=== PATIENT | female | born 1965 | race Hispanic/Latino ===

== ENCOUNTER 2017-03-05 08:42 | Emergency (ER) | payer BC ==
[2017-03-05 09:00] LABS: Basophils % (Auto) 0.6 % (0.0-1.8); Eosinophils % (Auto) 2.2 % (0.0-4.3); Hematocrit 47.3 % (30.3-42.9); Hemoglobin 15.9 gm/dl (10.1-14.3); Mean Corpuscular HGB Conc 34 % (30-34); Mean Corpuscular Hemoglobin 33 pg (28-32); Mean Corpuscular Volume 99 fl (79-97); Platelet Count 348 K/mm3 (140-440); Red Cell Distribution Width 14.2 % (13.2-15.2); White Blood Count 10.9 K/mm3 (4.5-11.0)
[2017-03-05 09:21] LABS: Alanine Aminotransferase 49 units/L (7-56); Albumin 4.1 g/dL (3.9-5); Albumin/Globulin Ratio 1.2 %; Alkaline Phosphatase 81 units/L (35-129); Anion Gap 29 mmol/L; Blood Urea Nitrogen 7 mg/dL (7-17); Carbon Dioxide 18 mmol/L (22-30); Glucose 80 mg/dL (65-100); Lipase 67 units/L (13-60); Sodium 140 mmol/L (137-145); Total Protein 7.4 g/dL (6.3-8.2)
[2017-03-05 09:27] LABS: Bacteria,Urine 1+ /HPF (Negative); Bilirubin,Urine NEG (Negative); Blood,Urine SM (Negative); Ketones,Urine TR mg/dL (Negative); Leukocyte Esterase,Urine NEG (Negative); Mucus,Urine FEW /HPF; Nitrite,Urine NEG (Negative); Urobilinogen,Urine < 2.0 mg/dL (<2.0)
[2017-03-05] MEDS ORDERED: NACL 0.9% 1000 ML 1,000 ML IV ONE (11:56)
[2017-03-05] MEDS ORDERED: DILAUDID IV ONE (11:56)
[2017-03-05] MEDS ORDERED: ZOFRAN IV ONE (11:56)
[2017-03-05] MEDS ORDERED: PROTONIX IV ONE (11:56)
--- NOTE | 2017-03-05 11:59 | Emergency Department Report ---
ED Abdominal Pain HPI - General Chief Complaint: Abdominal Pain Stated Complaint: ABD PAIN Time Seen by Provider: 03/05/17 11:47 Source: patient Mode of arrival: Ambulatory Limitations: No Limitations - History of Present Illness MD Complaint: abdominal pain -: Gradual Location: diffuse Radiation: back Migration to: no migration Severity: moderate Severity scale (0 -10): 8 Consistency: constant Improves With: nothing Worsens With: nothing Associated Symptoms: nausea. denies: vomiting, diarrhea, fever, chills, constipation, dysuria, hematemesis, melena, hematuria, anorexia - Related Data Previous Rx's Medication Instructions Recorded Last Taken Type HYDROcodone/APAP 5-325 [[place] 1 each PO BID #12 tablet 03/05/17 Unknown Rx 5/325] Ondansetron [Zofran Odt] 4 mg PO BID #20 tab.rapdis 03/05/17 Unknown Rx Allergies Allergy/AdvReac Type Severity Reaction Status Date / Time No Known Allergies Allergy Unverified 09/14/14 08:30 ED Review of Systems ROS: Stated complaint: ABD PAIN Other details as noted in HPI Comment: All other systems reviewed and negative ED Past Medical Hx - Past Medical History Previous Medical History?: Yes Hx Hypertension: Yes Hx Congestive Heart Failure: No Hx Diabetes: No Hx Kidney Stones: Yes Hx Asthma: No Hx COPD: No - Surgical History Past Surgical History?: Yes Hx Cholecystectomy: Yes (02/2014) Additional Surgical History: tonsillectomy, Right shoulder surgery - Social History Smoking Status: Current Every Day Smoker Substance Use Type: Alcohol, Non Opiate Pain - Medications Home Medications: Home Medications Medication Instructions Recorded Confirmed Last Taken Type HYDROcodone/APAP 5-325 [[place] 1 each PO BID #12 tablet 03/05/17 Unknown Rx 5/325] Ondansetron [Zofran Odt] 4 mg PO BID #20 tab.rapdis 03/05/17 Unknown Rx ED Physical Exam - General Limitations: No Limitations General appearance: alert, in no apparent distress - Head Head exam: Present: atraumatic, normocephalic - Eye Eye exam: Present: normal appearance, PERRL - ENT ENT exam: Present: normal exam, normal orophraynx, mucous membranes moist - Neck Neck exam: Present: normal inspection - Respiratory Respiratory exam: Present: normal lung sounds bilaterally. Absent: respiratory distress - Cardiovascular Cardiovascular Exam: Present: regular rate, normal rhythm. Absent: systolic murmur, diastolic murmur, rubs, gallop - GI/Abdominal GI/Abdominal exam: Present: soft, tenderness, normal bowel sounds. Absent: distended, guarding, rebound, rigid - Extremities Exam Extremities exam: Present: normal inspection - Back Exam Back exam: Present: normal inspection - Neurological Exam Neurological exam: Present: alert, oriented X3 - Psychiatric Psychiatric exam: Present: normal affect, normal mood - Skin Skin exam: Present: warm, dry, intact, normal color. Absent: rash ED Course Vital Signs 03/05/17 03/05/17 03/05/17 08:45 11:38 11:40 Temperature 98.2 F Pulse Rate 116 H Respiratory 22 Rate Blood Pressure 182/108 187/99 Blood Pressure [Left] O2 Sat by Pulse 98 97 98 Oximetry 03/05/17 11:47 Temperature 97.8 F Pulse Rate 107 H Respiratory 18 Rate Blood Pressure Blood Pressure 187/99 [Left] O2 Sat by Pulse 97 Oximetry ED Medical Decision Making - Lab Data Result diagrams: 03/05/17 08:51 03/05/17 08:51 Critical care attestation.: If time is entered above; I have spent that time in minutes in the direct care of this critically ill patient, excluding procedure time. ED Disposition Clinical Impression: Abdominal pain, Pancreatitis Disposition: DISCHARGED TO HOME OR SELFCARE Is pt being admited?: No Does the pt Need Aspirin: No Condition: Good Instructions: Abdominal Pain (ED) Prescriptions: HYDROcodone/APAP 5-325 [[place] 5/325] 1 each PO BID #12 tablet Ondansetron [Zofran Odt] 4 mg PO BID #20 tab.rapdis Referrals: PORSHA CROSS MD [Primary Care Provider] - 3-5 Days Time of Disposition: 15:01
--- NOTE | 2017-03-05 14:16 | Cat Scan Report ---
CT ABDOMEN AND PELVIS WITH CONTRAST INDICATION: Abdominal pain. COMPARISON: 09/14/2014. FINDINGS: Abdomen and pelvis CT performed following intravenous administration of 100 cc of Omnipaque 300. LUNG BASES: Mild nonspecific distal esophageal wall prominence/thickening, not excluded for gastroesophageal reflux and/or hiatal hernia, amongst others. ABDOMEN: Interval development of moderate to severe diffuse fatty hepatic infiltration. Right hepatic lobe measures 19.7 cm in midclavicular length, previously 19.3 cm. No biliary dilatation. Stable cholecystectomy clips. Spleen, pancreas, adrenals, nonaneurysmal abdominal aorta with atherosclerotic calcifications, IVC and kidneys otherwise stable. Approximately 7 mm left renal calculus inferiorly again noted as also slight bilateral perinephric stranding. No ascites or size significant adenopathy. Nonopacified GI tract evaluation limited, though grossly nonobstructive. Normal appendix. Decompressed colon. PELVIS: Urinary bladder, uterus, adnexa/ovaries and rectosigmoid appear unremarkable. Small pelvic phleboliths. No free fluid or significant adenopathy. Stable bones with lower thoracic-upper lumbar degenerative changes and mild lower lumbar facet arthropathy. CONCLUSION: 1. Interval development of diffuse fatty hepatic infiltration, as described. 2. Stable cholecystectomy and 7 mm nonobstructing left renal calculus, amongst others, as above. Thank you for the opportunity to participate in this patient's care.
[2017-03-05 15:25] VITALS: BP 188/95
== END 2017-03-05 15:25 | disposition home or self-care (01) ==
LOC: ED 08:42
DX: K85.90 Acute pancreatitis without necrosis or infection, unspecified (principal); I10 Essential (primary) hypertension; F17.200 Nicotine dependence, unspecified, uncomplicated
CPT/HCPCS: 36415; 74177; 80053; 81001; 83690; 85025; 96361; 96374; 96375; 99284; C9113; J1170; J2405; J7030; Q9967

== ENCOUNTER 2018-01-06 03:29 | Inpatient (IN) | payer BC ==
[2018-01-06 04:53] LABS: Basophils % (Auto) 0.3 % (0.0-1.8); Eosinophils # (Auto) 0.1 K/mm3 (0.0-0.4); Eosinophils % (Auto) 1.7 % (0.0-4.3); Hematocrit 38.6 % (30.3-42.9); Hemoglobin 13.9 gm/dl (10.1-14.3); Lymphocytes # (Auto) 1.4 K/mm3 (1.2-5.4); Lymphocytes % (Auto) 23.1 % (13.4-35.0); Mean Corpuscular HGB Conc 36 % (30-34); Mean Corpuscular Hemoglobin 34 pg (28-32); Mean Corpuscular Volume 95 fl (79-97); Monocytes # (Auto) 0.7 K/mm3 (0.0-0.8); Monocytes % (Auto) 11.2 % (0.0-7.3); Platelet Count 365 K/mm3 (140-440); Red Blood Count 4.05 M/mm3 (3.65-5.03); Red Cell Distribution Width 13.3 % (13.2-15.2)
[2018-01-06 05:17] LABS: Alanine Aminotransferase 54 units/L (7-56); Albumin 4.5 g/dL (3.9-5); BUN/Creatinine Ratio 13; Blood Urea Nitrogen 9 mg/dL (7-17); Calcium 8.9 mg/dL (8.4-10.2); Hemolysis Index 4; Lipase 73 units/L (13-60)
[2018-01-06 07:22] LABS: Bacteria,Urine 1+ /HPF (Negative); Bilirubin,Urine NEG (Negative); Blood,Urine MOD (Negative); Color,Urine Yellow (Yellow); Mucus,Urine FEW /HPF; Protein,Urine <15 mg/dL mg/dL (Negative)
[2018-01-06] MEDS ORDERED: NACL 0.9% 500 ML 500 ML IV ONE (07:35)
--- NOTE | 2018-01-06 07:57 | Emergency Department Report ---
HPI - General Chief Complaint: Abdominal Pain Time Seen by Provider: 01/06/18 07:34 - HPI HPI: 52-year-old female presents to the emergency department with complaint of generalized abdominal pain, worse in the upper quadrant, as well as nausea, vomiting. When asked how long this has been going on the patient responds with "forever." However she says that there has been exacerbation over the past 4 days. The patient says "I think I have pancreatitis." She went to see a roofer vinyl coating, Dr. Rodgers, but then got a second opinion through [facility]. The patient has a history of alcohol abuse and questionable dependence but she denies any history of on-call withdrawal symptoms or seizures. Her last drink was at noon yesterday. Primary care physician is Dr. Sosa Esquivel. She has not taken anything for her symptoms prior to presentation. She has a history of cholecystectomy. No recent travel or sick contacts at home. ED Past Medical Hx - Past Medical History Previous Medical History?: Yes Hx Hypertension: Yes Hx Congestive Heart Failure: No Hx Diabetes: No Hx Kidney Stones: Yes Hx Asthma: No Hx COPD: No - Surgical History Hx Cholecystectomy: Yes (02/2014) Additional Surgical History: tonsillectomy, Right shoulder surgery 2008 - Social History Smoking Status: Current Every Day Smoker Substance Use Type: Alcohol - Medications Home Medications: Home Medications Medication Instructions Recorded Confirmed Last Taken Type Dicyclomine [Bentyl] 20 mg PO QID 01/06/18 01/06/18 01/05/18 History Lactobacillus Combination No.8 1 each PO DAILY 01/06/18 01/06/18 01/05/18 History [Adult Probiotic] Olmesartan/Hydrochlorothiazide 1 each PO DAILY 01/06/18 01/06/18 01/05/18 History [Olmesartan-Hctz 40-25 mg Tab] Omeprazole 20 mg PO QHS 01/06/18 01/06/18 01/05/18 History Omeprazole 40 mg PO QAM 01/06/18 01/06/18 01/05/18 History ED Review of Systems ROS: Stated complaint: PANCREATITIS ATTACK Other details as noted in HPI Comment: All other systems reviewed and negative Constitutional: denies: chills, fever Eyes: denies: eye pain, eye discharge, vision change ENT: denies: ear pain, throat pain Respiratory: denies: cough, shortness of breath, wheezing Cardiovascular: denies: chest pain, palpitations Gastrointestinal: abdominal pain, nausea, vomiting. denies: diarrhea Genitourinary: denies: urgency, dysuria, discharge Musculoskeletal: denies: back pain, joint swelling, arthralgia Skin: denies: rash, lesions Neurological: denies: headache, weakness, paresthesias Physical Exam - Physical Exam Vital Signs: Vital Signs 01/06/18 04:06 Temperature 98.8 F Pulse Rate 98 H Respiratory 18 Rate Blood Pressure 112/72 O2 Sat by Pulse 99 Oximetry Physical Exam: GENERAL: The patient is well-developed well-nourished. HENT: Normocephalic. Atraumatic. Patient has moist mucous membranes. EYES: Extraocular motions are intact. Pupils equal reactive to light bilaterally. NECK: Supple. Trachea is midline. CHEST/LUNGS: Clear to auscultation. There is no respiratory distress noted. HEART/CARDIOVASCULAR: Regular. There is no tachycardia. There is no murmur. ABDOMEN: Abdomen is soft. Mild generalized tenderness to palpation. No guarding. Patient has normal bowel sounds. There is no abdominal distention. SKIN: There is no rash. There is no edema. There is no diaphoresis. NEURO: The patient is awake, alert, and oriented. The patient is cooperative. The patient has no focal neurologic deficits. The patient has normal speech. MUSCULOSKELETAL: There is no tenderness or deformity. There is no limitation range of motion. There is no evidence of acute injury. ED Course Vital Signs 01/06/18 04:06 Temperature 98.8 F Pulse Rate 98 H Respiratory 18 Rate Blood Pressure 112/72 O2 Sat by Pulse 99 Oximetry ED Medical Decision Making - Lab Data Result diagrams: 01/06/18 04:36 01/06/18 04:36 - Radiology Data Radiology results: report reviewed CT ABDOMEN PELVIS WITH CONTRAST: HISTORY: abdominal pain. COMPARISON: 03/05/17. TECHNIQUE: Helical CT in 1.25mm intervals following IV contrast. Sagittal and coronal reconstructions. FINDINGS: Lung bases: Normal. Liver: Moderate diffuse fatty infiltration throughout the liver is unchanged. No focal liver mass, surface nodularity or enlargement. Biliary system: Cholecystectomy. No biliary dilatation. Pancreas: Normal. Spleen: Normal. Kidneys/ureters/bladder: 7 mm calyceal stone in the inferior left kidney is unchanged. The kidneys, ureters and bladder are within normal limits otherwise. Adrenal glands: Normal. Aorta: Mild diffuse calcifications. No stenosis, dissection or aneurysm. Intestines: Within normal limits given no oral contrast was administered. Appendix: Normal. Pelvic viscera: Normal. Ascites: None. Adenopathy: None. Musculoskeletal: Moderate thoracolumbar spondylosis. No evidence for acute injury or suspicious bony lesion. IMPRESSION: No acute process is identified in the abdomen or pelvis. No significant change since 03/05/17. 7 mm nonobstructing left renal stone. Hepatic steatosis. Transcribed By: TTR Dictated By: ISAK WISE JR, MD Electronically Authenticated By: ISAK WISE JR, MD Signed Date/Time: 01/06/18 6955 - Medical Decision Making Patient's labs for her abdominal pain almost unremarkable. No leukocytosis. Slight elevation in the lipase level but just above the normal range. CT of the abdomen and pelvis does not show any acute process. Labs do show significant hyponatremia with a sodium of 117. While patient denies drinking every day, I believe there is some level of consistent alcohol use and this may be the cause of the hyponatremia. Nonetheless, the patient will need admission for slow correction of the hyponatremia. She has been accepted for admission by the hospitalist service. - Differential Diagnosis pancreatitis, gastritis, pseudohyponatremia, alcohol dependence Critical Care Time: No Critical care attestation.: If time is entered above; I have spent that time in minutes in the direct care of this critically ill patient, excluding procedure time. ED Disposition Clinical Impression: Hyponatremia syndrome, History of alcohol use disorder, Hypochloremia Abdominal pain Qualifiers: Abdominal location: generalized Qualified Code(s): R10.84 - Generalized abdominal pain Disposition: OP ADMIT IP TO THIS HOSP Is pt being admited?: Yes Condition: Stable Instructions: Abdominal Pain (ED) Time of Disposition: 11:05
[2018-01-06] MEDS ORDERED: ROCEPHIN/NS 1 GM/50 ML 1 GM/50 ML BAG IV NR (08:00)
[2018-01-06] MEDS ORDERED: NACL ONE ×2 (08:04→08:59)
[2018-01-06] MEDS ORDERED: cefTRIAXone 1 GM in NACL 0.9% 20 ML IV NR (08:15)
[2018-01-06] MEDS ORDERED: PERCOCET 5/325 PO ONE (09:28)
[2018-01-06] MEDS: cefTRIAXone 1 GM in NACL 0.9% 20 ML IV SCH ×2 (09:40→21:42)
--- NOTE | 2018-01-06 09:41 | Cat Scan Report ---
CT ABDOMEN PELVIS WITH CONTRAST: HISTORY: abdominal pain. COMPARISON: 03/05/17. TECHNIQUE: Helical CT in 1.25mm intervals following IV contrast. Sagittal and coronal reconstructions. FINDINGS: Lung bases: Normal. Liver: Moderate diffuse fatty infiltration throughout the liver is unchanged. No focal liver mass, surface nodularity or enlargement. Biliary system: Cholecystectomy. No biliary dilatation. Pancreas: Normal. Spleen: Normal. Kidneys/ureters/bladder: 7 mm calyceal stone in the inferior left kidney is unchanged. The kidneys, ureters and bladder are within normal limits otherwise. Adrenal glands: Normal. Aorta: Mild diffuse calcifications. No stenosis, dissection or aneurysm. Intestines: Within normal limits given no oral contrast was administered. Appendix: Normal. Pelvic viscera: Normal. Ascites: None. Adenopathy: None. Musculoskeletal: Moderate thoracolumbar spondylosis. No evidence for acute injury or suspicious bony lesion. IMPRESSION: No acute process is identified in the abdomen or pelvis. No significant change since 03/05/17. 7 mm nonobstructing left renal stone. Hepatic steatosis.
[2018-01-06] MEDS: 1: FOLVITE 1 MG, INFUVITE 10 ML, VITAMIN B-1 100 MG in NACL 0.9% 1000 ML 988.8 ML 2: NA IV SCH (09:50)
[2018-01-06] MEDS ORDERED: SODIUM CHLORIDE FLUSH SYRINGE 10 ML IV PRN (10:30)
[2018-01-06] MEDS ORDERED: PROVENTIL IH PRN (10:30)
[2018-01-06] MEDS ORDERED: TYLENOL PO PRN (10:30)
[2018-01-06] MEDS ORDERED: LIBRIUM PO PRN (10:30)
[2018-01-06] MEDS ORDERED: AMBIEN PO PRN (10:30)
[2018-01-06] MEDS ORDERED: MORPHINE IV PRN (10:30)
[2018-01-06] MEDS ORDERED: ZOFRAN IV PRN (10:30)
[2018-01-06] MEDS ORDERED: REGLAN IV PRN (10:30)
--- NOTE | 2018-01-06 10:40 | History and Physical Report ---
History of Present Illness Date of examination: 01/06/18 Chief complaint: Abdominal pain, N/V History of present illness: 52-year-old female presents to the emergency department with complaint of generalized abdominal pain, worse in the upper quadrant, as well as nausea, vomiting. She went to see a auto appraiser, Dr. Rodgers, but then got a second opinion through [facility]. The patient has a history of alcohol abuse and questionable dependence , Her last drink was at noon yesterday. Primary care physician is Dr. Sosa Esquivel. She has not taken anything for her symptoms prior to presentation. No recent travel or sick contacts at home. In the ER her na noted to be 117, CT abdomen pelvis showed no acute change. She is being admitted for further evaluation and management. Past History Past Medical History: hypertension Past Surgical history: She has a history of cholecystectomy. Social history: smoking (a pack of cigarettes per day), alcohol abuse (drinks vodka daily), full code. denies: IV drug use Family history: diabetes, hypertension Review of System: Constitutional: no fever, no chills, no weight loss Ears, eyes, nose, mouth and throat: no nasal congestion, no nasal discharge, no sinus pressure, no vision change, no red eye. Neck: No neck pain or rigidity. Cardiovascular: No chest pain, no orthopnea, no palpitations, no leg swelling Respiratory: No shortness of breath, no cough, no congestion, no wheezing Gastrointestinal: + abdominal pain, + nausea, + vomiting Genitourinary : no dysuria, no hematuria Musculoskeletal: no joint swelling or muscle ache Integumentary: no rash, no pruritis Neurological: no parathesias, no numbness, no tingling Endocrine: no cold or heat intolerance, no polyuria or polydipsia Hematologic/Lymphatic: no easy bruising, no easy bleeding, no gland swelling Allergic/Immunologic: no urticaria, no angioedema. Medications and Allergies Allergies Allergy/AdvReac Type Severity Reaction Status Date / Time No Known Allergies Allergy Unverified 09/14/14 08:30 Home Medications Medication Instructions Recorded Confirmed Last Taken Type Dicyclomine [Bentyl] 20 mg PO QID 01/06/18 01/06/18 01/05/18 History Lactobacillus Combination No.8 1 each PO DAILY 01/06/18 01/06/18 01/05/18 History [Adult Probiotic] Olmesartan/Hydrochlorothiazide 1 each PO DAILY 01/06/18 01/06/18 01/05/18 History [Olmesartan-Hctz 40-25 mg Tab] Omeprazole 20 mg PO QHS 01/06/18 01/06/18 01/05/18 History Omeprazole 40 mg PO QAM 01/06/18 01/06/18 01/05/18 History Active Meds: Active Medications Acetaminophen (Tylenol) 650 mg PO Q4H PRN PRN Reason: Pain MILD(1-3)/Fever >100.5/GAY Albuterol (Proventil) 2.5 mg IH Q4HRT PRN PRN Reason: Shortness Of Breath Chlordiazepoxide HCl (Librium) 50 mg PO Q1H PRN PRN Reason: CIWA-Ar 8-15 Enoxaparin Sodium (Lovenox) 40 mg SUB-Q QDAY [facility] Famotidine (Pepcid) 20 mg PO BID [facility] Folic Acid 1 mg/ Multivitamins /Minerals 10 ml/ Thiamine HCl 100 mg/ Sodium Chloride 1,000 mls @ 125 mls/hr IV .BY DURATION [facility] Last Admin: 01/06/18 09:50 Dose: 125 mls/hr Sodium Chloride (Nacl 0.9% 1000 Ml) 1,000 mls @ 125 mls/hr IV .BY DURATION [facility] Dextrose/Sodium Chloride (D5ns) 1,000 mls @ 100 mls/hr IV DIRECT [facility] Lorazepam (Ativan) 2 mg PO Q1H PRN PRN Reason: CIWA-Ar 8-15 Metoclopramide HCl (Reglan) 10 mg IV Q6H PRN PRN Reason: Nausea And Vomiting Morphine Sulfate (Morphine) 2 mg IV Q4H PRN PRN Reason: Pain, Moderate (4-6) Ondansetron HCl (Zofran) 4 mg IV Q8H PRN PRN Reason: Nausea And Vomiting Sodium Chloride (Sodium Chloride Flush Syringe 10 Ml) 10 ml IV BID [facility] Sodium Chloride (Sodium Chloride Flush Syringe 10 Ml) 10 ml IV PRN PRN PRN Reason: LINE FLUSH Zolpidem Tartrate (Ambien) 5 mg PO QHS PRN PRN Reason: Insomnia Exam - Physical Exam Narrative exam: GENERAL: well-developed and well-nourished WF lying on bed appeared to be in no discomfort. HEENT: Normocephalic. Atraumatic. No conjunctival congestion or icterus. Patient has moist mucous membranes. NECK: Supple. Trachea midline. CHEST/LUNGS: Clear to auscultated bilaterally, breathing nonlabored. No wheezes crackles or rhonchi. HEART/CARDIOVASCULAR: Regular in rate and rhythm. S1 and S2 positive. ABDOMEN: Abdomen is soft, mild epigastric tender. Patient has normal bowel sounds. SKIN: There is no rash. Warm and dry. NEURO: No focal motor deficit. Follows command. MUSCULOSKELETAL: No joint effusion or tenderness. EXTRIMITY: No edema, no cyanosis or clubbing. PSYCH: Cooperative. - Constitutional Vitals: Temp Pulse Resp BP Pulse Ox 98.8 F 98 H 18 112/72 99 01/06/18 04:06 01/06/18 04:06 01/06/18 04:06 01/06/18 04:06 01/06/18 04:06 Results - Labs CBC & Chem 7: 01/06/18 04:36 01/08/18 04:40 Labs: Abnormal lab results 01/06/18 01/06/18 01/06/18 Range/Units 04:36 04:36 06:44 MCH 34 H (28-32) pg MCHC 36 H (30-34) % Jones % (Auto) 11.2 H (0.0-7.3) % Sodium 117 L* (137-145) mmol/L Chloride 75.1 L (98-107) mmol/L Carbon Dioxide 19 L (22-30) mmol/L AST 55 H (5-40) units/L Lipase 73 H (13-60) units/L Urine WBC (Auto) 16.0 H (0.0-6.0) /HPF - Imaging and Cardiology CT scan - abdomen: report reviewed Assessment and Plan Severe hyponatremia, likely from volume depletion Intractable nausea and vomiting with abdominal pain Alcohol abuse Hypertension, benign UTI, acute cystitis DVT prophylaxis - - We will admit the patient to telemetry bed - We will obtain urine culture and place on Rocephin - Continue IV fluid hydration with D5 normal saline and monitor BP every 6 hour -Consult nephrology for severe hyponatremia - place on alcohol withdrawal protocol - Supportive care with as needed reglan and morphine for intractable nausea vomiting and abdominal pain - Provide GI and DVT prophylaxis
[2018-01-06] MEDS ORDERED: D5NS 1,000 ML IV SCH (11:00)
--- NOTE | 2018-01-06 11:19 | Consultation ---
History of Present Illness - Reason for Consult Consult date: 01/06/18 hyponatremia, metabolic acidosis, other (volume depletion) - History of Present Illness The patient is a 52-year-old female with medical history significant for Hypertension and chronic abdominal pain who presented to the ED with complaint of generalized abdominal pain. She has been vomiting since yesterday. Today morning she woke up with epigastric pain. The pain was sharp , constant, not radiating and 9/10. 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 She admits taking atleast 3 Etoh drinks daily. Denies any withdrawal symptoms. Patient denies any dysuria, hematuria, fever, dizziness, weakness, fever, chills or syncope. Sodium level was 117 on admission and had decreased to 114. She was taking HCTZ at home. Past History Past Medical History: hypertension, other (Gastritis) Medications and Allergies Allergies Allergy/AdvReac Type Severity Reaction Status Date / Time No Known Allergies Allergy Unverified 09/14/14 08:30 Home Medications Medication Instructions Recorded Confirmed Last Taken Type Dicyclomine [Bentyl] 20 mg PO QID 01/06/18 01/06/18 01/05/18 History Lactobacillus Combination No.8 1 each PO DAILY 01/06/18 01/06/18 01/05/18 History [Adult Probiotic] Olmesartan/Hydrochlorothiazide 1 each PO DAILY 01/06/18 01/06/18 01/05/18 History [Olmesartan-Hctz 40-25 mg Tab] Omeprazole 20 mg PO QHS 01/06/18 01/06/18 01/05/18 History Omeprazole 40 mg PO QAM 01/06/18 01/06/18 01/05/18 History Active Meds: Active Medications Acetaminophen (Tylenol) 650 mg PO Q4H PRN PRN Reason: Pain MILD(1-3)/Fever >100.5/GAY Albuterol (Proventil) 2.5 mg IH Q4HRT PRN PRN Reason: Shortness Of Breath Chlordiazepoxide HCl (Librium) 50 mg PO Q1H PRN PRN Reason: CIWA-Ar 8-15 Enoxaparin Sodium (Lovenox) 40 mg SUB-Q QDAY [facility] Famotidine (Pepcid) 20 mg PO BID [facility] Folic Acid 1 mg/ Multivitamins /Minerals 10 ml/ Thiamine HCl 100 mg/ Sodium Chloride 1,000 mls @ 125 mls/hr IV .BY DURATION [facility] Last Admin: 01/06/18 09:50 Dose: 125 mls/hr Sodium Chloride (Nacl 0.9% 1000 Ml) 1,000 mls @ 125 mls/hr IV .BY DURATION [facility] Dextrose/Sodium Chloride (D5ns) 1,000 mls @ 100 mls/hr IV DIRECT [facility] Ceftriaxone Sodium 1 gm/ (Sodium Chloride) 20 mls @ 2 mls/min IV Q12HR [facility] Lorazepam (Ativan) 2 mg PO Q1H PRN PRN Reason: CIWA-Ar 8-15 Metoclopramide HCl (Reglan) 10 mg IV Q6H PRN PRN Reason: Nausea And Vomiting Morphine Sulfate (Morphine) 2 mg IV Q4H PRN PRN Reason: Pain, Moderate (4-6) Ondansetron HCl (Zofran) 4 mg IV Q8H PRN PRN Reason: Nausea And Vomiting Sodium Chloride (Sodium Chloride Flush Syringe 10 Ml) 10 ml IV BID [facility] Sodium Chloride (Sodium Chloride Flush Syringe 10 Ml) 10 ml IV PRN PRN PRN Reason: LINE FLUSH Zolpidem Tartrate (Ambien) 5 mg PO QHS PRN PRN Reason: Insomnia Review of Systems Constitutional: no weight loss, no weight gain, no fever, no chills, no anorexia , no weakness Ears, nose, mouth and throat: no epistaxis Breasts: deferred Cardiovascular: high blood pressure, no chest pain, no orthopnea, no edema, no syncope, no lightheadedness, no shortness of breath, no leg edema Respiratory: no cough Gastrointestinal: abdominal pain, nausea, vomiting, no diarrhea, no hematemesis , no melena Genitourinary Female: no dysuria, no urgency Rectal: no bleeding Musculoskeletal: no prior amputations Integumentary: no rash, no redness, no jaundice Neurological: no paralysis, no convulsions, no change in speech, no change in mentation, no confusion Psychiatric: no confusion Endocrine: no weight change Exam - Vital Signs Vital signs: Vital Signs Temp Pulse Resp BP Pulse Ox 98.8 F 98 H 18 112/72 99 01/06/18 04:06 01/06/18 04:06 01/06/18 04:06 01/06/18 04:06 01/06/18 04:06 - General Appearance General appearance: well-developed, well-nourished, appears stated age, obese, other (no distress) EENT: ATNC, PERRL, mucous membranes dry, hearing intact, vision intact Neck: Present: neck supple, trachea midline Respiratory: Clear to Ascultation Heart: regular, S1S2, no murmurs Gastrointestinal: Present: normoactive bowel sounds, obese. Absent: tenderness , distended Integumentary: no rash, warm and dry Neurologic: no focal deficit, no asterixis, alert and oriented x3 Musculoskeletal: Present: other (no edema) Psychiatric: mood/affect appropriate, cooperative Results - Lab Results 01/06/18 04:36 01/06/18 16:19 Most recent lab results Calcium 8.9 mg/dL (8.4-10.2) 01/06/18 04:36 Assessment and Plan 1. Hyponatremia: In the setting of HCTZ and volume depletion. Continue IV fluids. IV fluids was changed to 1/2 NS for appropriate correction of Sodium level. Serial Sodium levels. 2. Metabolic acidosis: Monitor. 3. Volume depletion: Continue IV fluids. 4. Abdominal Pain.
[2018-01-06 11:21] LABS: BUN/Creatinine Ratio 16; Blood Urea Nitrogen 11 mg/dL (7-17); Calcium 8.8 mg/dL (8.4-10.2); Hemolysis Index 3
[2018-01-06] MEDS: ATIVAN PO PRN ×2 (14:39→21:39)
[2018-01-06] MEDS: HABITROL TD SCH (15:30)
[2018-01-06 16:55] LABS: BUN/Creatinine Ratio 15; Blood Urea Nitrogen 9 mg/dL (7-17); Calcium 9.4 mg/dL (8.4-10.2); Hemolysis Index 5
[2018-01-06] MEDS ORDERED: D5/0.45NS 1,000 ML IV SCH (19:00)
[2018-01-06] MEDS: PEPCID PO SCH (21:38)
[2018-01-06] MEDS ORDERED: ROCEPHIN/NS 1 GM/50 ML 1 GM/50 ML BAG IV SCH (22:00)
[2018-01-06 23:16] LABS: BUN/Creatinine Ratio 20; Blood Urea Nitrogen 10 mg/dL (7-17); Calcium 8.6 mg/dL (8.4-10.2); Hemolysis Index 3
[2018-01-07] MEDS: SODIUM CHLORIDE FLUSH SYRINGE 10 ML IV SCH ×3 (00:38→22:08)
[2018-01-07 06:44] LABS: BUN/Creatinine Ratio 25; Blood Urea Nitrogen 10 mg/dL (7-17); Calcium 8.8 mg/dL (8.4-10.2); Hemolysis Index 72
[2018-01-07 06:48] LABS: Uric Acid 4.5 mg/dL (3.5-7.6)
--- NOTE | 2018-01-07 07:43 | Progress Note ---
Assessment and Plan 1. Hyponatremia: In the setting of HCTZ and volume depletion. Sodium level is improving appropriately. Continue IV fluids. Serial Sodium levels. 2. Metabolic acidosis: Improved. 3. Volume depletion: Continue IV fluids. 4. UTI. Subjective Date of service: 01/07/18 Interval history: Patient is feeling better. Objective - Vital Signs Vital signs: Vital Signs - 12hr 01/06/18 01/06/18 01/07/18 20:09 22:19 00:34 Temperature 98.2 F 97.9 F Pulse Rate 94 H 89 100 H Respiratory 20 18 Rate Blood Pressure 112/71 82/53 [Left] O2 Sat by Pulse 96 100 Oximetry 01/07/18 05:08 Temperature 98.2 F Pulse Rate 87 Respiratory 20 Rate Blood Pressure 111/63 [Left] O2 Sat by Pulse 100 Oximetry - General Appearance General appearance: well-developed, well-nourished, appears stated age, other ( no distress) EENT: ATNC, PERRL, hearing intact, vision intact Neck: supple Respiratory: Present: Clear to Ascultation Cardiology: regular, S1S2, no murmurs Gastrointestinal: normoactive bowel sounds, no tenderness Integumentary: no rash, warm and dry Neurologic: no focal deficit, no asterixis, alert and oriented x3 Musculoskeletal: other (no edema) Psychiatric: mood/affect appropriate, cooperative - Lab 01/06/18 04:36 01/07/18 04:14 Most recent lab results Calcium 8.8 mg/dL (8.4-10.2) 01/07/18 04:14 Phosphorus 3.00 mg/dL (2.5-4.5) 01/07/18 04:14 Magnesium 2.10 mg/dL (1.7-2.3) 01/07/18 04:14
[2018-01-07] MEDS: 1: FOLVITE 1 MG, INFUVITE 10 ML, VITAMIN B-1 100 MG in NACL 0.9% 1000 ML 988.8 ML 2: NA IV SCH ×2 (08:47→22:09)
[2018-01-07] MEDS: LOVENOX SUB-Q SCH (09:49)
[2018-01-07] MEDS: PEPCID PO SCH ×2 (09:49→21:58)
[2018-01-07] MEDS: HABITROL TD SCH (09:50)
--- NOTE | 2018-01-07 16:37 | Progress Note ---
Assessment and Plan Severe hyponatremia, likely from volume depletion and HcTZ use Intractable nausea and vomiting with abdominal pain, resolved Alcohol abuse, counselled Hypertension, benign UTI, acute cystitis DVT prophylaxis -Follow obtain urine culture and cont on Rocephin - Continue IV fluid hydration with D5 normal saline and monitor BMP - Consulted nephrology for severe hyponatremia - Cont on alcohol withdrawal protocol - Supportive care with as needed reglan and morphine for intractable nausea vomiting and abdominal pain - advance diet as tolerated - Provide GI and DVT prophylaxis Subjective Date of service: 01/07/18 Interval history: Pt seen and examined Na level improved to 124 today tolerating diet Objective - Exam Narrative Exam: GENERAL: well-developed and well-nourished WF lying on bed appeared to be in no discomfort. HEENT: Normocephalic. Atraumatic. No conjunctival congestion or icterus. Patient has moist mucous membranes. NECK: Supple. Trachea midline. CHEST/LUNGS: Clear to auscultated bilaterally, breathing nonlabored. No wheezes crackles or rhonchi. HEART/CARDIOVASCULAR: Regular in rate and rhythm. S1 and S2 positive. ABDOMEN: Abdomen is soft, mild epigastric tender. Patient has normal bowel sounds. SKIN: There is no rash. Warm and dry. NEURO: No focal motor deficit. Follows command. MUSCULOSKELETAL: No joint effusion or tenderness. EXTRIMITY: No edema, no cyanosis or clubbing. PSYCH: Cooperative. - Constitutional Vitals: Vital Signs - 12hr 01/07/18 01/07/18 01/07/18 05:08 10:00 13:00 Temperature 98.2 F Pulse Rate 87 82 Respiratory 20 Rate Respiratory 20 Rate [RUQ] Blood Pressure 111/63 [Left] O2 Sat by Pulse 100 Oximetry - Labs CBC & Chem 7: 01/06/18 04:36 01/08/18 04:40 Labs: Abnormal lab results 01/06/18 01/06/18 01/06/18 Range/Units 16:19 21:33 22:42 Sodium 122 L D 123 L 124 L (137-145) mmol/L Chloride 80.1 L 83.8 L (98-107) mmol/L Carbon Dioxide (22-30) mmol/L Creatinine 0.6 L 0.5 L (0.7-1.2) mg/dL Glucose 133 H (65-100) mg/dL 04/05/18 Range/Units 04:14 Sodium 123 L (137-145) mmol/L Chloride 85.3 L (98-107) mmol/L Carbon Dioxide 21 L (22-30) mmol/L Creatinine 0.4 L (0.7-1.2) mg/dL Glucose (65-100) mg/dL
[2018-01-07] MEDS: ATIVAN PO PRN (17:03)
[2018-01-07] MEDS: cefTRIAXone 1 GM in NACL 0.9% 20 ML IV SCH (17:05)
[2018-01-07] MEDS: NACL 0.9% 1000 ML 1,000 ML IV SCH ×2 (17:06→17:14)
[2018-01-07] MEDS ORDERED: SODIUM CHLORIDE PO SCH (22:00)
[2018-01-08 05:34] LABS: BUN/Creatinine Ratio 8; Blood Urea Nitrogen 3 mg/dL (7-17); Calcium 8.2 mg/dL (8.4-10.2); Hemolysis Index 6
--- NOTE | 2018-01-08 07:03 | Progress Note ---
Assessment and Plan 1. Hyponatremia: In the setting of HCTZ and volume depletion. Sodium level has improved appropriately. Explained patient not to take Hydrochlorthiazide. 2. Metabolic acidosis: Improved. 3. Volume depletion: IV fluids. 4. UTI. Subjective Date of service: 01/08/18 Interval history: Patient is feeling better. Objective - Vital Signs Vital signs: Vital Signs - 12hr 01/07/18 01/08/18 01/08/18 20:26 00:50 04:31 Temperature 98.3 F 98.7 F Pulse Rate 102 H 82 92 H Respiratory 8 L 18 18 Rate Blood Pressure 88/37 125/70 Blood Pressure 91/48 [Left] O2 Sat by Pulse 96 98 99 Oximetry - General Appearance General appearance: well-developed, well-nourished, appears stated age, other ( no distress) EENT: ATNC, PERRL, hearing intact, vision intact Neck: supple Respiratory: Present: Clear to Ascultation Cardiology: regular, S1S2, no murmurs Gastrointestinal: normoactive bowel sounds, no tenderness Integumentary: no rash, warm and dry Neurologic: no focal deficit, no asterixis, alert and oriented x3 Musculoskeletal: other (no edema) Psychiatric: mood/affect appropriate, cooperative - Lab 01/06/18 04:36 01/08/18 04:40 Most recent lab results Calcium 8.2 mg/dL (8.4-10.2) L 01/08/18 04:40 Phosphorus 3.00 mg/dL (2.5-4.5) 01/07/18 04:14 Magnesium 2.10 mg/dL (1.7-2.3) 01/07/18 04:14
[2018-01-08] MEDS ORDERED: K-DUR PO NR (08:00)
[2018-01-08] MEDS: cefTRIAXone 1 GM in NACL 0.9% 20 ML IV SCH (10:26)
[2018-01-08] MEDS: LOVENOX SUB-Q SCH (10:27)
[2018-01-08] MEDS: HABITROL TD SCH (10:28)
[2018-01-08] MEDS: PEPCID PO SCH (10:28)
[2018-01-08] MEDS: SODIUM CHLORIDE FLUSH SYRINGE 10 ML IV SCH (10:29)
[2018-01-08] MEDS: ATIVAN PO PRN (11:01)
--- NOTE | 2018-01-08 14:14 | Discharge Summary ---
Providers - Providers Date of Admission: 01/06/18 10:30 Date of discharge: 01/08/18 Attending physician: JULIO C JOEL 01/06/18 10:30 Consult to Physician [CONS] Routine Comment: OFFICE NOTIFIED [id number] Consulting Provider: LULU MANLEY Physician Instructions: Reason For Exam: hyponatremia Primary care physician: MANAGED [facility]ARE [facility]IAISON Hospitalization Condition: Stable Hospital course: The patient is a 52-year-old female with medical history significant for Hypertension and chronic abdominal pain who presented to the ED with complaint of generalized abdominal pain. She has been vomiting since yesterday. Today morning she woke up with epigastric pain. The pain was sharp , constant, not radiating and 9/10. She has seen 2 different [employer] for the abdominal pain. She admits taking atleast 3 Etoh drinks daily. Denies any withdrawal symptoms. Patient denies any dysuria, hematuria, fever, dizziness, weakness, fever, chills or syncope. Sodium level was 117 on admission and had decreased to 114. She was taking HCTZ at home. Discharge diagnosis and management: Severe hyponatremia, likely from volume depletion and HcTZ use Intractable nausea and vomiting with abdominal pain, resolved Alcohol abuse, counselled Hypertension, benign UTI, acute cystitis Disposition: - TO HOME OR SELFCARE Time spent for discharge: 32 MINUTES Core Measure Documentation - Palliative Care Palliative Care/ Comfort Measures: Not Applicable - Core Measures Any of the following diagnoses?: none Exam - Physical Exam Narrative exam: GENERAL: well-developed and well-nourished WF lying on bed appeared to be in no discomfort. HEENT: Normocephalic. Atraumatic. No conjunctival congestion or icterus. Patient has moist mucous membranes. NECK: Supple. Trachea midline. CHEST/LUNGS: Clear to auscultated bilaterally, breathing nonlabored. No wheezes crackles or rhonchi. HEART/CARDIOVASCULAR: Regular in rate and rhythm. S1 and S2 positive. ABDOMEN: Abdomen is soft, mild epigastric tender. Patient has normal bowel sounds. SKIN: There is no rash. Warm and dry. NEURO: No focal motor deficit. Follows command. MUSCULOSKELETAL: No joint effusion or tenderness. EXTRIMITY: No edema, no cyanosis or clubbing. PSYCH: Cooperative. - Constitutional Vitals: Temp Pulse Resp BP Pulse Ox 98.7 F 86 20 125/70 99 01/08/18 04:31 04/06/18 13:00 01/08/18 10:00 01/08/18 04:31 01/08/18 04:31 Plan Activity: advance as tolerated Weight Bearing Status: Weight Bear as Tolerated Diet: low fat Follow up with: PRIMARY CARE, [Primary Care Provider] - 3-5 Days Prescriptions: Ciprofloxacin HCl [Ciprofloxacin TAB] 500 mg PO Q12H #7 tab
[2018-01-08 16:42] VITALS: BP 118/70
== END 2018-01-08 16:30 | disposition home or self-care (01) | DRG 690 ==
LOC: ED 03:29 → 4A 10:30
PROVIDERS: ADMIT Internal Medicine; ATTEND Internal Medicine
DX: N30.00 Acute cystitis without hematuria (principal); E87.1 Hypo-osmolality and hyponatremia; E87.2 Acidosis; F17.210 Nicotine dependence, cigarettes, uncomplicated; F10.10 Alcohol abuse, uncomplicated; E86.9 Volume depletion, unspecified; E78.00 Pure hypercholesterolemia, unspecified; G89.29 Other chronic pain; I10 Essential (primary) hypertension; Z90.89 Acquired absence of other organs; Z79.899 Other long term (current) drug therapy; Z90.49 Acquired absence of other specified parts of digestive tract; Z71.41 Alcohol abuse counseling and surveillance of alcoholic; Z83.3 Family history of diabetes mellitus; Z82.49 Family history of ischemic heart disease and other diseases of the circulatory system
CPT/HCPCS: 36415; 74177; 80048; 80053; 81001; 82140; 83690; 83735; 84100; 84295; 84550; 84703; 85025; 87076; 87086; 87186; 96365; 99406; J0696; J1650; J3411; J7030; J7050; Q9967

== ENCOUNTER 2019-09-21 03:34 | Emergency (ER) | payer BC, OTHER ==
--- NOTE | 2019-09-21 04:16 | XRay Report ---
CHEST 1 VIEW INDICATION / CLINICAL INFORMATION: Chest Pain. COMPARISON: 04/17/2018 FINDINGS: SUPPORT DEVICES: None. HEART / MEDIASTINUM: No significant abnormality. LUNGS / PLEURA: No significant pulmonary or pleural abnormality. No pneumothorax. ADDITIONAL FINDINGS: There has been prior right shoulder surgery with evidence of acromioplasty as we ll as tendon anchors in place. IMPRESSION: 1. No significant change Signer Name: Alan Luna MD Signed: 09/21/2019 4:12 AM Workstation Name: [id number]
[2019-09-21 04:47] LABS: Basophils # (Auto) 0.1 K/mm3 (0.0-0.1); Basophils % (Auto) 1.4 % (0.0-1.8); Eosinophils # (Auto) 0.1 K/mm3 (0.0-0.4); Eosinophils % (Auto) 1.2 % (0.0-4.3); Hematocrit 42.3 % (30.3-42.9); Hemoglobin 14.7 gm/dl (10.1-14.3); Lymphocytes % (Auto) 19.8 % (13.4-35.0); Mean Corpuscular HGB Conc 35 % (30-34); Mean Corpuscular Volume 101 fl (79-97); Monocytes # (Auto) 1.3 K/mm3 (0.0-0.8); Monocytes % (Auto) 12.8 % (0.0-7.3); Platelet Count 393 K/mm3 (140-440); Red Blood Count 4.17 M/mm3 (3.65-5.03); Red Cell Distribution Width 14.1 % (13.2-15.2)
[2019-09-21 05:09] LABS: BUN/Creatinine Ratio 8; Blood Urea Nitrogen 4 mg/dL (7-17); Calcium 9.6 mg/dL (8.4-10.2); Hemolysis Index 2
[2019-09-21] MEDS ORDERED: SODIUM CHLORIDE 0.9% 1000 ML 1,000 ML IV ONE (08:26)
[2019-09-21] MEDS ORDERED: methylPREDNISolone Sod Succinate 125 MG/2 ML INJ IV ONE (08:27)
[2019-09-21] MEDS ORDERED: ALBUTEROL 2.5 MG/3 ML NEBU IH ONE (08:27)
--- NOTE | 2019-09-21 09:05 | Emergency Department Report ---
Minor Respiratory - HPI Chief Complaint: Dyspnea/Respdistress Stated Complaint: JAVI/EMESIS Time Seen by Provider: 09/21/19 08:12 Duration: 5 Days Pain Location: Chest Severity: mild Minor Respiratory: Yes Able to Tolerate Fluids, Yes Cough, No Rhinorrhea, No Sore Throat, No Ear Pain, No Sick Contacts, No Hemoptysis, No Chest Pain, No Shortness of Breath, No Fever Other History: On my arrival to examine patient at 08 100 she is upset because s he has been waiting so long to be seen. Patient reports that she has been coughing up green secretion for 10 days. She has had congestion sore throat nausea and diarrhea. She also endorses low back pain. She states that her chest hurts from coughing. She also states that her lower back hurts from coughing. She denies fever or chills. She is afebrile on triage. She is a bit tachycardic. She feels like she is dehydrated. She states she vomited prior to coming to the ER. She has been on amoxicillin as given her by the urgent care 2 days ago. She has a current every day smoker ED Review of Systems ROS: Stated complaint: JAVI/EMESIS Other details as noted in HPI Comment: All other systems reviewed and negative ED Past Medical Hx - Past Medical History Hx Hypertension: Yes Hx Congestive Heart Failure: No Hx Diabetes: No Hx Kidney Stones: Yes Hx Asthma: No Hx COPD: No - Surgical History Hx Cholecystectomy: Yes (02/2014) Additional Surgical History: tonsillectomy, Right shoulder surgery 2008 - Social History Smoking Status: Current Every Day Smoker Substance Use Type: Alcohol - Medications Home Medications: Home Medications Medication Instructions Recorded Confirmed Last Taken Type Dicyclomine [Bentyl] 20 mg PO QID 01/06/18 01/06/18 01/05/18 History Lactobacillus Combination No.8 1 each PO DAILY 01/06/18 01/06/18 01/05/18 History [Adult Probiotic] Omeprazole 20 mg PO QHS 01/06/18 01/06/18 01/05/18 History Omeprazole 40 mg PO QAM 01/06/18 01/06/18 01/05/18 History Aspirin EC [Halfprin EC] 81 mg PO QDAY #30 tablet. 04/18/18 Unknown Rx AtorvaSTATin [Lipitor] 20 mg PO QHS #30 tab 04/18/18 Unknown Rx Lisinopril [Zestril TAB] 20 mg PO QDAY #30 tablet 04/18/18 Unknown Rx Metoprolol [Lopressor TAB] 50 mg PO BID #60 tablet 04/18/18 Unknown Rx ALBUTEROL Inhaler (OR & NICU) 2 puff IH QID PRN #1 inhalation 09/21/19 Unknown Rx [ProAir HFA Inhaler] Azithromycin [Zithromax Z-DANA] 250 mg PO DAILY #6 tablet 09/21/19 Unknown Rx Benzonatate [Tessalon Perles] 100 mg PO Q12H PRN #20 capsule 09/21/19 Unknown Rx Cetirizine HCl [ZyrTEC] 10 mg PO DAILY #30 capsule 09/21/19 Unknown Rx Fluticasone [Flonase] 1 spray NS QDAY #1 bottle 09/21/19 Unknown Rx Ibuprofen [Motrin] 800 mg PO Q8HR PRN #30 tablet 09/21/19 Unknown Rx predniSONE [Deltasone] 20 mg PO DAILY #5 tablet 09/21/19 Unknown Rx Minor Respiratory Exam - Exam General: Vital signs noted. No distress. Alert and acting appropriately. HEENT: Yes Moist Mucous Membranes, No Pharyngeal Erythema, No Pharyngeal Exudates, No Rhinorrhea, No Conjuctival Injection, No Frontal Tenderness, No Maxillary Tenderness Ear: Neither TM Bulge, Neither TM Erythema, Neither EAC Pain, Neither EAC Discharge Neck: Yes Supple, No Adenopathy Lungs: Yes Good Air Exchange, Yes Cough, No Wheezes, No Ronchi, No Stridor, No Labored Respirations, No Retractions, No Use of Accessory Muscles, No Other Abnormal Lung Sounds Heart: Yes Regular, No Murmur Abdomen: Yes Normal Bowel Sounds, No Tenderness, No Peritoneal Signs Skin: No Rash, No Edema Neurologic: Alert and oriented, no deficits. Musculoskeletal: Unremarkable. ED Course Vital Signs 09/21/19 09/21/19 09/21/19 03:41 07:14 07:16 Temperature 98.4 F Pulse Rate 110 H 102 H Respiratory 18 17 Rate Blood Pressure 135/89 Blood Pressure [Left] O2 Sat by Pulse 96 97 95 Oximetry 09/21/19 09/21/19 09/21/19 07:18 07:46 08:00 Temperature Pulse Rate 92 H 100 H Respiratory Rate Blood Pressure 130/75 148/97 Blood Pressure 98/67 [Left] O2 Sat by Pulse Oximetry 09/21/19 09/21/19 08:15 08:46 Temperature Pulse Rate Respiratory 12 11 L Rate Blood Pressure 146/88 126/72 Blood Pressure [Left] O2 Sat by Pulse 100 Oximetry ED Medical Decision Making - Lab Data Result diagrams: 09/21/19 04:13 09/21/19 04:13 - EKG Data -: EKG Interpreted by Ia EKG shows normal: sinus rhythm Rate: normal - EKG Data When compared to previous EKG there are: no significant change Interpretation: no acute changes - Radiology Data Radiology results: report reviewed, image reviewed - Medical Decision Making Labs 09/21/19 09/21/19 09/21/19 04:13 04:13 06:33 WBC 9.9 RBC 4.17 Hgb 14.7 H Hct 42.3 MCV 101 H MCH 35 H MCHC 35 H RDW 14.1 Plt Count 393 Lymph % (Auto) 19.8 [place] % (Auto) 12.8 H Eos % (Auto) 1.2 Baso % (Auto) 1.4 Lymph # 2.0 [place] # 1.3 H Eos # 0.1 Baso # 0.1 Seg Neutrophils % 64.8 Seg Neutrophils # 6.4 Sodium 140 Potassium 4.2 Chloride 100.0 Carbon Dioxide 24 Anion Gap 20 BUN 4 L Creatinine 0.5 L Estimated GFR > 60 BUN/Creatinine Ratio 8 Glucose 95 Calcium 9.6 Troponin T < 0.010 < 0.010 Vital Signs 09/21/19 09/21/19 09/21/19 03:41 07:14 07:16 Temperature 98.4 F Pulse Rate 110 H 102 H Respiratory 18 17 Rate Blood Pressure 135/89 Blood Pressure [Left] O2 Sat by Pulse 96 97 95 Oximetry 09/21/19 09/21/19 09/21/19 07:18 07:46 08:00 Temperature Pulse Rate 92 H 100 H Respiratory Rate Blood Pressure 130/75 148/97 Blood Pressure 98/67 [Left] O2 Sat by Pulse Oximetry 09/21/19 09/21/19 08:15 08:46 Temperature Pulse Rate Respiratory 12 11 L Rate Blood Pressure 146/88 126/72 Blood Pressure [Left] O2 Sat by Pulse 100 Oximetry ambulatory non ill non toxic taking po xray noted labs noted ua noted medicated in ER for COPD AE dc home with dc plan of care and follow up - Differential Diagnosis copd ae/pna/uti Critical care attestation.: If time is entered above; I have spent that time in minutes in the direct care of this critically ill patient, excluding procedure time. ED Disposition Clinical Impression: Tobacco use disorder, COPD exacerbation, URTI (acute upper respiratory infection), Acute bronchitis Disposition: DC-01 TO HOME OR SELFCARE Is pt being admited?: No Does the pt Need Aspirin: No Condition: Stable Instructions: Acute Bronchitis (ED) Additional Instructions: MEDS ORDERED FOLLOW UP THURSDAY WITH PCP REFERRAL BELOW HYDRATE WELL WITH WATER AVOID SMOKING STOP AMOX Prescriptions: predniSONE [Deltasone] 20 mg PO DAILY #5 tablet Fluticasone [Flonase] 1 spray NS QDAY #1 bottle Ibuprofen [Motrin] 800 mg PO Q8HR PRN #30 tablet PRN Reason: Pain, Moderate (4-6) ALBUTEROL Inhaler (OR & NICU) [ProAir HFA Inhaler] 2 puff IH QID PRN #1 inhalation PRN Reason: Shortness Of Breath Benzonatate [Tessalon Perles] 100 mg PO Q12H PRN #20 capsule PRN Reason: Cough Azithromycin [Zithromax Z-DANA] 250 mg PO DAILY #6 tablet Cetirizine HCl [ZyrTEC] 10 mg PO DAILY #30 capsule Referrals: MAYRA RESTREPO MD [Staff Physician] - 3-5 Days Time of Disposition: 09:07
[2019-09-21 09:18] LABS: Bilirubin,Urine NEG (Negative); Blood,Urine NEG (Negative); Color,Urine Yellow (Yellow); Mucus,Urine FEW /HPF; Protein,Urine <15 mg/dL mg/dL (Negative); RBC,Urine < 1.0 /HPF (0.0-6.0); Urobilinogen,Urine < 2.0 mg/dL (<2.0)
[2019-09-21 09:49] VITALS: BP 125/85
== END 2019-09-21 09:48 | disposition home or self-care (01) ==
LOC: ED 03:34
DX: J44.1 Chronic obstructive pulmonary disease with (acute) exacerbation (principal); J20.9 Acute bronchitis, unspecified; J06.9 Acute upper respiratory infection, unspecified; F17.200 Nicotine dependence, unspecified, uncomplicated; I10 Essential (primary) hypertension; Z87.442 Personal history of urinary calculi; Z90.89 Acquired absence of other organs; Z90.49 Acquired absence of other specified parts of digestive tract; Z79.899 Other long term (current) drug therapy
CPT/HCPCS: 36415; 71045; 80048; 81001; 84484; 85025; 93005; 93010; 94640; 96361; 96374; 99284; J2930; J7030

== ENCOUNTER 2020-08-17 10:49 | Emergency (ER) | payer OTHER ==
[2020-08-17] MEDS ORDERED: SODIUM CHLORIDE 0.9% 1000 ML 1,000 ML IV ONE (12:00)
--- NOTE | 2020-08-17 12:05 | Emergency Department Report ---
HPI - HPI HPI: This is a 54-year-old female who presents to the emergency department with multiple complaints. Patient's 3 months ago and the patient has been drinking alcohol heavily since that time. 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 Patient also complains of some lower abdominal pain that she says has been going on for the past 5 years. She says "I have been worked up many times for this and they have given me every diagnosis." Patient follows with a assistant program director, Dr. Cason. The patient's previous records show her to be diagnosed with hypertension, diverticulitis, kidney stones and she has a previous cholecystectomy. <LYLE MAGALLON - Last Filed: 08/17/20 15:56> <KIMBERLY WU - Last Filed: 08/18/20 14:20> - General Chief Complaint: Alcohol Time Seen by Provider: 08/17/20 11:47 ED Past Medical Hx - Past Medical History Hx Hypertension: Yes Hx Congestive Heart Failure: No Hx Diabetes: No Hx Kidney Stones: Yes Hx Asthma: No Hx COPD: No Additional medical history: Diverticulitis - Surgical History Hx Cholecystectomy: Yes (02/2014) Additional Surgical History: tonsillectomy, Right shoulder surgery 2008 - Social History Smoking Status: Current Every Day Smoker <LYLE MAGALLON - Last Filed: 08/17/20 15:56> <KIMBERLY WU - Last Filed: 08/18/20 14:20> - Medications Home Medications: Home Medications Medication Instructions Recorded Confirmed Last Taken Type Dicyclomine [Bentyl] 20 mg PO QID 01/06/18 08/17/20 01/05/18 History Lactobacillus Combination No.8 1 each PO DAILY 01/06/18 08/17/20 01/05/18 History [Adult Probiotic] Omeprazole 20 mg PO QHS 01/06/18 08/17/20 1 Day Ago History ~08/16/20 Omeprazole 40 mg PO QAM 01/06/18 08/17/20 1 Day Ago History ~08/16/20 Aspirin EC [Halfprin EC] 81 mg PO QDAY #30 tablet. 04/18/18 08/17/20 Unknown Rx AtorvaSTATin [Lipitor] 20 mg PO QHS #30 tab 04/18/18 08/17/20 Unknown Rx Metoprolol [Lopressor TAB] 50 mg PO BID #60 tablet 04/18/18 08/17/20 1 Day Ago Rx ~08/16/20 lisinopriL [Zestril TAB] 20 mg PO QDAY #30 tablet 04/18/18 08/17/20 1 Day Ago Rx ~08/16/20 Albuterol Mdi (or & Nicu Only) 2 puff IH QID PRN #1 inhalation 09/21/19 08/17/20 Unknown Rx [ProAir HFA Inhaler] Benzonatate [Tessalon Perles] 100 mg PO Q12H PRN #20 capsule 09/21/19 08/17/20 Unknown Rx Cetirizine HCl [ZyrTEC] 10 mg PO DAILY #30 capsule 09/21/19 08/17/20 Unknown Rx Fluticasone [Flonase] 1 spray NS QDAY #1 bottle 09/21/19 08/17/20 Unknown Rx predniSONE [Deltasone] 40 mg PO BID 08/17/20 08/17/20 1 Day Ago History ~08/16/20 Mirtazapine [Remeron 15mg TAB] 15 mg PO QHS #30 tablet 08/18/20 Unknown Rx Multivitamin with Folic Acid [[facility] 400 mcg PO QDAY #30 tablet 08/18/20 Unknown Rx One Daily Essential Tablet] Sertraline [Zoloft] 50 mg PO QDAY #30 tablet 08/18/20 Unknown Rx chlordiazePOXIDE [Librium] 25 mg PO Q6H PRN #25 capsule 08/18/20 Unknown Rx ED Review of Systems ROS: Stated complaint: CHEST PAIN 2XWKS Other details as noted in HPI Comment: All other systems reviewed and negative Constitutional: denies: chills, fever Eyes: denies: eye pain, vision change ENT: denies: ear pain, throat pain Respiratory: denies: cough, shortness of breath Cardiovascular: denies: palpitations, edema Gastrointestinal: abdominal pain, nausea, vomiting Genitourinary: denies: dysuria, discharge Musculoskeletal: back pain (Chronic). denies: joint swelling Skin: denies: rash, pruritus Neurological: denies: headache, weakness Psychiatric: depression, suicidal thoughts. denies: auditory hallucinations, visual hallucinations, homicidal thoughts <LYLE MAGALLON - Last Filed: 08/17/20 15:56> ROS: Stated complaint: CHEST PAIN 2XWKS Other details as noted in HPI <KIMBERLY WU - Last Filed: 08/18/20 14:20> Physical Exam - Physical Exam Vital Signs: Vital Signs 08/17/20 11:41 Temperature 98.2 F Pulse Rate 94 H Respiratory 18 Rate Blood Pressure 148/91 O2 Sat by Pulse 95 Oximetry Physical Exam: GENERAL: The patient is well-developed well-nourished. HENT: Normocephalic. Atraumatic. Patient has moist mucous membranes. EYES: Extraocular motions are intact. NECK: Supple. Trachea is midline. CHEST/LUNGS: Clear to auscultation. There is no respiratory distress noted. HEART/CARDIOVASCULAR: Regular. There is no tachycardia. There is no murmur. ABDOMEN: Abdomen is soft. Mild epigastric tenderness to palpation. No guarding. Patient has normal bowel sounds. SKIN: Skin is warm and dry. NEURO: The patient is awake, alert, and oriented. The patient is cooperative. The patient has no focal neurologic deficits. Normal speech. MUSCULOSKELETAL: There is no tenderness or deformity. There is no limitation range of motion. PSYCH: Patient is emotionally labile. One moment she gets angry in the next she is tearful. <LYLE MAGALLON - Last Filed: 08/17/20 15:56> - Physical Exam Vital Signs: Vital Signs 08/17/20 08/17/20 08/17/20 11:13 11:15 11:30 Temperature Pulse Rate 112 H 110 H 107 H Respiratory 24 22 Rate Blood Pressure 148/91 O2 Sat by Pulse 98 97 Oximetry 08/17/20 08/17/20 08/17/20 11:41 11:45 12:00 Temperature 98.2 F Pulse Rate 94 H 92 H 100 H Respiratory 18 17 22 Rate Blood Pressure 148/91 128/70 131/90 O2 Sat by Pulse 95 94 95 Oximetry 08/17/20 08/17/20 08/17/20 12:02 12:15 12:30 Temperature Pulse Rate 125 H 95 H Respiratory 18 28 H 23 Rate Blood Pressure 131/90 118/74 O2 Sat by Pulse 97 95 95 Oximetry 08/17/20 08/17/20 08/17/20 12:45 13:01 13:15 Temperature Pulse Rate 121 H 123 H Respiratory 21 29 H 37 H Rate Blood Pressure 116/89 116/89 116/89 O2 Sat by Pulse 98 98 97 Oximetry 08/17/20 08/17/20 08/17/20 13:30 13:45 14:00 Temperature Pulse Rate Respiratory Rate Blood Pressure 129/85 125/87 135/71 O2 Sat by Pulse 98 98 96 Oximetry 08/17/20 08/17/20 08/17/20 14:15 15:23 15:30 Temperature Pulse Rate 101 H Respiratory 20 Rate Blood Pressure 137/76 125/87 151/94 O2 Sat by Pulse 96 98 97 Oximetry 08/17/20 08/17/20 08/17/20 15:45 16:01 16:17 Temperature Pulse Rate 99 H 118 H Respiratory 22 22 Rate Blood Pressure 136/78 136/78 136/78 O2 Sat by Pulse 96 98 97 Oximetry 08/17/20 08/17/20 08/17/20 16:31 16:45 17:00 Temperature Pulse Rate 97 H 97 H 103 H Respiratory 20 20 21 Rate Blood Pressure 126/60 122/73 125/69 O2 Sat by Pulse 95 96 95 Oximetry 08/17/20 08/17/20 08/17/20 17:15 17:31 17:45 Temperature Pulse Rate 100 H 123 H 127 H Respiratory 21 22 20 Rate Blood Pressure 125/72 150/86 150/86 O2 Sat by Pulse 97 98 Oximetry 08/17/20 08/17/20 08/17/20 18:18 18:30 18:46 Temperature Pulse Rate 137 H 110 H Respiratory 17 21 Rate Blood Pressure 150/86 156/104 156/104 O2 Sat by Pulse 99 98 96 Oximetry 08/17/20 08/17/20 08/17/20 19:00 19:15 19:30 Temperature Pulse Rate 112 H 106 H 113 H Respiratory 20 21 20 Rate Blood Pressure 145/79 124/68 128/65 O2 Sat by Pulse 96 95 95 Oximetry 08/17/20 08/17/20 08/17/20 19:45 20:00 20:15 Temperature Pulse Rate 129 H 126 H 124 H Respiratory 20 41 H 53 H Rate Blood Pressure 128/65 157/93 147/91 O2 Sat by Pulse 98 97 97 Oximetry 08/17/20 08/17/20 08/17/20 20:30 20:45 21:00 Temperature Pulse Rate 127 H 117 H 125 H Respiratory 32 H 39 H 28 H Rate Blood Pressure 167/104 133/54 136/52 O2 Sat by Pulse 98 95 94 Oximetry 08/17/20 08/17/20 08/17/20 21:15 21:30 21:45 Temperature Pulse Rate 120 H 137 H 148 H Respiratory 25 H 34 H 26 H Rate Blood Pressure 114/50 119/60 119/60 O2 Sat by Pulse 95 95 95 Oximetry 08/17/20 08/17/20 08/18/20 22:01 22:15 07:26 Temperature Pulse Rate 142 H 144 H Respiratory 22 20 18 Rate Blood Pressure 119/60 155/88 O2 Sat by Pulse 96 99 Oximetry 08/18/20 08/18/20 09:01 10:01 Temperature Pulse Rate Respiratory 16 18 Rate Blood Pressure O2 Sat by Pulse Oximetry <KIMBERLY WU - Last Filed: 08/18/20 14:20> ED Course Vital Signs 08/17/20 11:41 Temperature 98.2 F Pulse Rate 94 H Respiratory 18 Rate Blood Pressure 148/91 O2 Sat by Pulse 95 Oximetry - Consultations Consultation #1: 08/17/20 15:52 I spoke to the assistant program director on-call, Dr. Elliott, regarding the patient's elevated liver enzymes and the ultrasound finding of fatty liver disease. Dr. Elliott agrees that this appears most consistent with alcoholic hepatitis and that the patient is medically cleared, from a GI standpoint, to pursue psychiatric treatment and can follow-up outpatient regarding the transaminitis. <LYLE MAGALLON - Last Filed: 08/17/20 15:56> Vital Signs 08/17/20 08/17/20 08/17/20 11:13 11:15 11:30 Temperature Pulse Rate 112 H 110 H 107 H Respiratory 24 22 Rate Blood Pressure 148/91 O2 Sat by Pulse 98 97 Oximetry 08/17/20 08/17/20 08/17/20 11:41 11:45 12:00 Temperature 98.2 F Pulse Rate 94 H 92 H 100 H Respiratory 18 17 22 Rate Blood Pressure 148/91 128/70 131/90 O2 Sat by Pulse 95 94 95 Oximetry 08/17/20 08/17/20 08/17/20 12:02 12:15 12:30 Temperature Pulse Rate 125 H 95 H Respiratory 18 28 H 23 Rate Blood Pressure 131/90 118/74 O2 Sat by Pulse 97 95 95 Oximetry 08/17/20 08/17/20 08/17/20 12:45 13:01 13:15 Temperature Pulse Rate 121 H 123 H Respiratory 21 29 H 37 H Rate Blood Pressure 116/89 116/89 116/89 O2 Sat by Pulse 98 98 97 Oximetry 08/17/20 08/17/20 08/17/20 13:30 13:45 14:00 Temperature Pulse Rate Respiratory Rate Blood Pressure 129/85 125/87 135/71 O2 Sat by Pulse 98 98 96 Oximetry 08/17/20 08/17/20 08/17/20 14:15 15:23 15:30 Temperature Pulse Rate 101 H Respiratory 20 Rate Blood Pressure 137/76 125/87 151/94 O2 Sat by Pulse 96 98 97 Oximetry 08/17/20 08/17/20 08/17/20 15:45 16:01 16:17 Temperature Pulse Rate 99 H 118 H Respiratory 22 22 Rate Blood Pressure 136/78 136/78 136/78 O2 Sat by Pulse 96 98 97 Oximetry 08/17/20 08/17/20 08/17/20 16:31 16:45 17:00 Temperature Pulse Rate 97 H 97 H 103 H Respiratory 20 20 21 Rate Blood Pressure 126/60 122/73 125/69 O2 Sat by Pulse 95 96 95 Oximetry 08/17/20 08/17/20 08/17/20 17:15 17:31 17:45 Temperature Pulse Rate 100 H 123 H 127 H Respiratory 21 22 20 Rate Blood Pressure 125/72 150/86 150/86 O2 Sat by Pulse 97 98 Oximetry 08/17/20 08/17/20 08/17/20 18:18 18:30 18:46 Temperature Pulse Rate 137 H 110 H Respiratory 17 21 Rate Blood Pressure 150/86 156/104 156/104 O2 Sat by Pulse 99 98 96 Oximetry 08/17/20 08/17/20 08/17/20 19:00 19:15 19:30 Temperature Pulse Rate 112 H 106 H 113 H Respiratory 20 21 20 Rate Blood Pressure 145/79 124/68 128/65 O2 Sat by Pulse 96 95 95 Oximetry 08/17/20 08/17/20 08/17/20 19:45 20:00 20:15 Temperature Pulse Rate 129 H 126 H 124 H Respiratory 20 41 H 53 H Rate Blood Pressure 128/65 157/93 147/91 O2 Sat by Pulse 98 97 97 Oximetry 08/17/20 08/17/20 08/17/20 20:30 20:45 21:00 Temperature Pulse Rate 127 H 117 H 125 H Respiratory 32 H 39 H 28 H Rate Blood Pressure 167/104 133/54 136/52 O2 Sat by Pulse 98 95 94 Oximetry 08/17/20 08/17/20 08/17/20 21:15 21:30 21:45 Temperature Pulse Rate 120 H 137 H 148 H Respiratory 25 H 34 H 26 H Rate Blood Pressure 114/50 119/60 119/60 O2 Sat by Pulse 95 95 95 Oximetry 08/17/20 08/17/20 08/18/20 22:01 22:15 07:26 Temperature Pulse Rate 142 H 144 H Respiratory 22 20 18 Rate Blood Pressure 119/60 155/88 O2 Sat by Pulse 96 99 Oximetry 08/18/20 08/18/20 09:01 10:01 Temperature Pulse Rate Respiratory 16 18 Rate Blood Pressure O2 Sat by Pulse Oximetry - Reevaluation(s) Reevaluation #1: 08/18/20 14:14 Patient is currently alert, oriented, clinically sober and exhibits decision- making capacity. She walks with a steady gait. She is not homicidal or suicidal at this time. Her 1013 was discontinued by the psychiatric team. Her tachycardia is resolved. She is tolerating liquid feeds. She has no abdominal pain. Laboratory abnormalities are likely secondary to alcoholism. Medically speaking, with resolution of tachycardia, clinical sobriety, the fact that the patient has close outpatient GI follow-up, she will need to discontinue/abstain from alcohol consumption, initiate multivitamin therapy, and follow-up as an outpatient for her presumed chronic laboratory abnormalities. She will be discharged with outpatient resources, she follows up with primary care doctor, Dr. Leon Nolen, and assistant program director Dr. Polanco. <KIMBERLY WU - Last Filed: 08/18/20 14:20> ED Medical Decision Making - Lab Data Result diagrams: 08/17/20 12:18 08/17/20 12:18 - Medical Decision Making This patient presents with alcohol intoxication with a blood alcohol level of 0.38. The patient has depression regarding her job and her issues with alcohol abuse and it has caused her to have suicidal ideations without a plan. For this reason the patient has been made a 1013. Patient's labs also shows elevated LFTs and lipase. An ultrasound was done that shows fatty liver disease without any other acute process. Patient appears to have alcoholic hepatitis. Gastroenterology was contacted and agrees that the patient can follow-up outpatient regarding the transaminitis and her chronic abdominal pains. The patient has been given IV fluid resuscitation including banana bag. She will be placed on alcohol withdrawal protocol. The patient will be seen by the psychiatric assessment team when her blood alcohol level comes down. <LYLE MAGALLON S - Last Filed: 08/17/20 15:56> - Lab Data Result diagrams: 08/17/20 12:18 08/17/20 12:18 Vital Signs 08/17/20 08/17/20 08/17/20 11:13 11:15 11:30 Temperature Pulse Rate 112 H 110 H 107 H Respiratory 24 22 Rate Blood Pressure 148/91 O2 Sat by Pulse 98 97 Oximetry 08/17/20 08/17/20 08/17/20 11:41 11:45 12:00 Temperature 98.2 F Pulse Rate 94 H 92 H 100 H Respiratory 18 17 22 Rate Blood Pressure 148/91 128/70 131/90 O2 Sat by Pulse 95 94 95 Oximetry 08/17/20 08/17/20 08/17/20 12:02 12:15 12:30 Temperature Pulse Rate 125 H 95 H Respiratory 18 28 H 23 Rate Blood Pressure 131/90 118/74 O2 Sat by Pulse 97 95 95 Oximetry 08/17/20 08/17/20 08/17/20 12:45 13:01 13:15 Temperature Pulse Rate 121 H 123 H Respiratory 21 29 H 37 H Rate Blood Pressure 116/89 116/89 116/89 O2 Sat by Pulse 98 98 97 Oximetry 08/17/20 08/17/20 08/17/20 13:30 13:45 14:00 Temperature Pulse Rate Respiratory Rate Blood Pressure 129/85 125/87 135/71 O2 Sat by Pulse 98 98 96 Oximetry 08/17/20 08/17/20 08/17/20 14:15 15:23 15:30 Temperature Pulse Rate 101 H Respiratory 20 Rate Blood Pressure 137/76 125/87 151/94 O2 Sat by Pulse 96 98 97 Oximetry 08/17/20 08/17/20 08/17/20 15:45 16:01 16:17 Temperature Pulse Rate 99 H 118 H Respiratory 22 22 Rate Blood Pressure 136/78 136/78 136/78 O2 Sat by Pulse 96 98 97 Oximetry 08/17/20 08/17/20 08/17/20 16:31 16:45 17:00 Temperature Pulse Rate 97 H 97 H 103 H Respiratory 20 20 21 Rate Blood Pressure 126/60 122/73 125/69 O2 Sat by Pulse 95 96 95 Oximetry 08/17/20 08/17/20 08/17/20 17:15 17:31 17:45 Temperature Pulse Rate 100 H 123 H 127 H Respiratory 21 22 20 Rate Blood Pressure 125/72 150/86 150/86 O2 Sat by Pulse 97 98 Oximetry 08/17/20 08/17/20 08/17/20 18:18 18:30 18:46 Temperature Pulse Rate 137 H 110 H Respiratory 17 21 Rate Blood Pressure 150/86 156/104 156/104 O2 Sat by Pulse 99 98 96 Oximetry 08/17/20 08/17/20 08/17/20 19:00 19:15 19:30 Temperature Pulse Rate 112 H 106 H 113 H Respiratory 20 21 20 Rate Blood Pressure 145/79 124/68 128/65 O2 Sat by Pulse 96 95 95 Oximetry 08/17/20 08/17/20 08/17/20 19:45 20:00 20:15 Temperature Pulse Rate 129 H 126 H 124 H Respiratory 20 41 H 53 H Rate Blood Pressure 128/65 157/93 147/91 O2 Sat by Pulse 98 97 97 Oximetry 08/17/20 08/17/20 08/17/20 20:30 20:45 21:00 Temperature Pulse Rate 127 H 117 H 125 H Respiratory 32 H 39 H 28 H Rate Blood Pressure 167/104 133/54 136/52 O2 Sat by Pulse 98 95 94 Oximetry 08/17/20 08/17/20 08/17/20 21:15 21:30 21:45 Temperature Pulse Rate 120 H 137 H 148 H Respiratory 25 H 34 H 26 H Rate Blood Pressure 114/50 119/60 119/60 O2 Sat by Pulse 95 95 95 Oximetry 08/17/20 08/17/20 08/18/20 22:01 22:15 07:26 Temperature Pulse Rate 142 H 144 H Respiratory 22 20 18 Rate Blood Pressure 119/60 155/88 O2 Sat by Pulse 96 99 Oximetry 08/18/20 08/18/20 09:01 10:01 Temperature Pulse Rate Respiratory 16 18 Rate Blood Pressure O2 Sat by Pulse Oximetry <KIMBERLY WU Last Filed: 08/18/20 14:20> Critical Care Time: No Critical care attestation.: If time is entered above; I have spent that time in minutes in the direct care of this critically ill patient, excluding procedure time. <LYLE MAGALLON S - Last Filed: 08/17/20 15:56> Critical care attestation.: If time is entered above; I have spent that time in minutes in the direct care of this critically ill patient, excluding procedure time. <BRYCEKIMBERLY Buenrostro Filed: 08/18/20 14:20> ED Disposition Time of Disposition: 16:01 <LYLE MAGALLON S - Last Filed: 08/17/20 15:56> Is pt being admited?: No Does the pt Need Aspirin: No <BRYCEKIMBERLY Filed: 08/18/20 14:20> Clinical Impression: Depression, Alcohol intoxication, Alcoholic fatty liver, Transaminitis Disposition: TO HOME OR SELFCARE Condition: Stable Instructions: Alcoholic Liver Disease, [id number], Binge-Drinking Information, Adult, Major Depressive Disorder, Adult, Fatty Liver Disease Additional Instructions: Recommend that the patient discontinue alcohol consumption right away. Please take a multivitamin on a daily basis. Please make certain to eat a balanced diet, and eat at least 3-5 times per day. Take the Librium as needed for sensation of alcohol withdrawal, and shaking. Take the multivitamin and folic acid as directed. Minimize/avoid consumption of Motrin, ibuprofen, Naprosyn, Aleve. Follow-up with your primary care doctor or assistant program director within the next week for repeat laboratory testing, checkup and evaluation. Specifically, the patient should have repeat basic metabolic panel, and repeat liver test checked/evaluated by either her primary care doctor, or assistant program director. This should be done within the next week. Please return to the emergency room right away with new pain, worsened pain, migration of pain, Projectile vomiting, change in mental status, confusion, inability to tolerate liquid feeds, new, worsened or different symptoms not present on the initial emergency room evaluation Recommend that patient not drive or operate motor vehicles until cleared to do so by a primary care doctor. Prescriptions: Mirtazapine [Remeron 15mg TAB] 15 mg PO QHS #30 tablet Sertraline [Zoloft] 50 mg PO QDAY #30 tablet Referrals: ROSS ELLIOTT MD [Staff Physician] - 3-5 Days
[2020-08-17 12:48] LABS: Basophils # (Auto) 0.2 K/mm3 (0.0-0.1); Basophils % (Auto) 2.4 % (0.0-1.8); Eosinophils % (Auto) 0.6 % (0.0-4.3); Hematocrit 41.8 % (30.3-42.9); Hemoglobin 14.2 gm/dl (10.1-14.3); Lymphocytes % (Auto) 27.9 % (13.4-35.0); Mean Corpuscular HGB Conc 34 % (30-34); Mean Corpuscular Volume 101 fl (79-97); Monocytes # (Auto) 0.5 K/mm3 (0.0-0.8); Monocytes % (Auto) 7.2 % (0.0-7.3); Platelet Count 224 K/mm3 (140-440); Red Blood Count 4.15 M/mm3 (3.65-5.03); Red Cell Distribution Width 15.2 % (13.2-15.2)
--- NOTE | 2020-08-17 13:00 | XRay Report ---
ABDOMEN 2 VIEWS INDICATION / CLINICAL INFORMATION: Abd pain. COMPARISON: None available. FINDINGS: TUBES / LINES: None. BOWEL GAS PATTERN: No significant abnormality. FREE AIR / EXTRALUMINAL GAS: None seen. ADDITIONAL FINDINGS: Cholecystectomy. CHEST: Visualized chest shows no significant abnormality. IMPRESSION: No acute process. Signer Name: Alan Hayden MD Signed: 08/17/2020 12:54 PM Workstation Name: [id number]
[2020-08-17 13:13] LABS: Alanine Aminotransferase 101 units/L (7-56); Blood Urea Nitrogen 4 mg/dL (7-17); Calcium 8.6 mg/dL (8.4-10.2); Hemolysis Index 3
[2020-08-17 13:45] LABS: BUN/Creatinine Ratio 8
[2020-08-17] MEDS ORDERED: THIAMINE 100 MG, FOLIC ACID 1 MG, MULTIPLE VITAMIN INJ, ADULT 10 ML in SODIUM CHLORIDE ... IV ONE (14:00)
[2020-08-17 14:19] LABS: Bilirubin,Urine NEG (Negative); Blood,Urine NEG (Negative); Color,Urine Yellow (Yellow); Mucus,Urine FEW /HPF; Protein,Urine <15 mg/dL mg/dL (Negative); RBC,Urine < 1.0 /HPF (0.0-6.0); Urobilinogen,Urine < 2.0 mg/dL (<2.0); WBC,Urine < 1.0 /HPF (0.0-6.0)
[2020-08-17 14:21] LABS: Amphetamine Screen,Urine Negative; Benzodiazepines Screen,Urine Negative; Cannabinoid Screen,Urine Negative; Cocaine Screen,Urine Negative; Methadone Screen,Urine Negative; Opiate Screen,Urine Negative
[2020-08-17] MEDS ORDERED: LORazepam 2 MG/ML VIAL IV PRN ×2 (15:56)
--- NOTE | 2020-08-17 15:58 | Ultrasound Report ---
ULTRASOUND ABDOMEN, COMPLETE INDICATION: Abd pain, transaminitis. COMPARISON: None available. FINDINGS: Pancreas: Normal. Abdominal Aorta: Normal. IVC: Normal. Liver: Increased echogenicity. Gallbladder: Surgically absent. Bile ducts: Normal. Common Bile Duct measures 3. mm. Right Kidney: Normal. Left Kidney: Normal. Spleen: Normal. Free fluid: None. Additional Findings: None. IMPRESSION: 1. Previous cholecystectomy. No biliary dilatation. 2. Suspected fatty infiltration of liver. Signer Name: Mauricio Rueda MD Signed: 08/17/2020 3:54 PM Workstation Name: [id number]
[2020-08-17] MEDS: LORazepam 2 MG/ML VIAL IV PRN ×2 (16:13→20:17)
[2020-08-18] MEDS ORDERED: IBUPROFEN 800 MG TAB PO ONE (03:26)
[2020-08-18] MEDS ORDERED: IBUPROFEN 800 MG TAB ONE (08:58)
[2020-08-18] MEDS: LORazepam 2 MG/ML VIAL IV PRN (09:05)
[2020-08-18] MEDS ORDERED: NICOTINE 14 MG/24 HR PATCH TD ONE (09:30)
--- NOTE | 2020-08-18 11:50 | Consultation ---
History of Present Illness - Reason for Consult Consult date: 08/18/20 Reason for consult: MHE Requesting physician: LYEL MAGALLON - History of Present Psychiatric Illness Per ED Provider: This is a 54-year-old female who presents to the emergency department with multiple complaints. Patient's 3 months ago and the patient has been drinking alcohol heavily since that time. 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 Patient also complains of some lower abdominal pain that she says has been going on for the past 5 years. She says "I have been worked up many times for this and they have given me every diagnosis." Patient follows with a refractory manager, Dr. Cason. The patient's previous records show her to be diagnosed with hypertension, diverticulitis, kidney stones and she has a pre vious cholecystectomy. Per MHE: Pt is a 54 year old female; Per triage note, "Pt lost her 3 months ago, has been heavily drinking ETOH since, states she has not eaten in 3 weeks and having abdominal pain 10, +SI."Pt lives with her son. Pts p assed away 3 months ago. 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 Pt reports that she has been drinking "at least 6 shots a day; I don't think it's excessive... I mean I could see if I was drinking a gallon maybe, but I think my body is rejecting everything because of the drinking." Pt reports she experiences withdrawals of shaking, anxiety, sweating, vomiting when pt stops drinking, "I have all of it (Symptoms) if I can't drink." "I don't even want food; I'm depressed." Pt reports current suicidal thoughts w/ plan to overdose or shoot self; pt explained this is related to the of her job stress at [employer] and hurting her back when she fell. Pt reports no attempts in the past to harm herself. Pt reports her brother committed suicide 2003. Pt reports her recently, "all his pictures and memories on facebook are popping up." "I went to a grief counselor and it helped some, but all this [employer] stuff with my branch being shut. They will put me in [facility] at the operations center, but that's not where I want to be. I should probably quit; I can't even function." Pt reports severe depression has caused a lack of appetite, desire to kill herself, "because I'm in so much fucking pain; if I can get a gun, but it's locked up, so I was planning to take all my blood pressure medications all at once." Pt denies any thoughts or plans of harming others. Pt is alert and oriented x 4. Pt denies AH or VH. Pt is disheveled in appearance with poor hygeine. Pt is depressed with flat affect. Pt has good concentration and memory. Pt reports that she carries no mental health diagnosis. Pt reports that she has never been seen by a therapist or psychiatrist. Pt has no history of inpatient psyc admissions, but then pt reports that she was admitted to [facility] in March 2020 for Alcohol Detox. PSYCH HPI Patient is a 54-year-old currently employed, female with no si gnificant past psychiatric history and past medical history of IBS who presented to the hospital with chief complaint of somatic symptoms and suicidal ideation. 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 Patient also reports son and granddaughter currently lives with her, with more than 4 dogs in the house and all of this combined with just too much for her in the day she came to the hospital patient reported she was drunk could not remember what she said suicidal ideations. Patient reports she is not currently suicidal, says she knows because her younger brother had by suicide due to girl issues but rather, she endorses to having alcohol as a drinking problem right now because she thinks she likes it too well and interested in rehab. PAST PSYCHIATRIC HISTORY Diagnoses: None reported Suicide attempts or Self-harm behavior: None reported Prior psychiatric hospitalizations: None reported Substance Abuse history: Alcohol Previous psychiatric medications tried: None reported Outpatient treatment: None reported PAST MEDICAL HISTORY: IBS Family Psychiatric History: None reported or documented SOCIAL HISTORY Marital Status: Living Arrangements: own home Employment Status: employed Access to guns/weapons: None reported Education: high school History of Abuse: None reported Legal History: None reported REVIEW OF SYSTEMS Constitutional: Negative for weight loss ENT: Negative for stridor Respiratory: Negative for cough or hemoptysis All other systems reviewed and are negative MENTAL STATUS EXAMINATION General Appearance and Behavior: Age appropriate, good hygiene, wearing appropriate clothes, good eye contact, cooperative polite with questioning. Cooperation: Participating/engaged Psychomotor Behavior: unremarkable and within normal limits Mood: Good Affect and affective range: congruent with mood Thought Process: Fluent/Logical, Thought Content: Within reality, Speech: Normal volume, Regular rate and rhythm, Intellectual Functioning: Average Suicidal Ideation: Denies SI Homicidal Ideation: Denies HI Impulse Control: Unimpaired Insight and Judgment: Normal insight and judgment, Memory: Normal, Attention: Normal, Orientation: Alert, oriented, Diagnoses: Assessment and Plan - Psychiatric problem (1) Alcohol use disorder Current Visit: Yes Status: Acute (2) Dysfunctional grieving Current Visit: Yes Status: Acute Treatment Plan MEDICATIONS: Risks, benefits and alternatives of medications discussed with the patient, questions answered and consent obtained from patient. PSYCHOTHERAPY: Supportive psychotherapy provided MEDICAL: Per primary team DELIRIUM PRECAUTIONS: Please re-orient patient frequently, keep lights on during the day, and minimize benzodiazepines and opiates as these medications could worsen patient's confusion. 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 Outpt alchol rehab and safety discharge LEGAL STATUS: 1013 rescinded FOLLOW-UP: Will sign off Thank you for the consult. Please contact with any questions and/or concerns. Medications and Allergies Allergies Allergy/AdvReac Type Severity Reaction Status Date / Time No Known Allergies Allergy Unverified 09/14/14 08:30 Home Medications Medication Instructions Recorded Confirmed Last Taken Type Dicyclomine [Bentyl] 20 mg PO QID 01/06/18 08/17/20 01/05/18 History Lactobacillus Combination No.8 1 each PO DAILY 01/06/18 08/17/2018 History [Adult Probiotic] Omeprazole 20 mg PO QHS 01/06/18 08/17/20 1 Day Ago History ~08/16/20 Omeprazole 40 mg PO QAM 01/06/18 08/17/20 1 Day Ago History ~08/16/20 Aspirin EC [Halfprin EC] 81 mg PO QDAY #30 tablet. 04/18/18 08/17/20 Unknown Rx AtorvaSTATin [Lipitor] 20 mg PO QHS #30 tab 04/18/18 08/17/20 Unknown Rx Metoprolol [Lopressor TAB] 50 mg PO BID #60 tablet 04/18/18 08/17/20 1 Day Ago Rx ~08/16/20 lisinopriL [Zestril TAB] 20 mg PO QDAY #30 tablet 04/18/18 08/17/20 1 Day Ago Rx ~08/16/20 Albuterol Mdi (or & Nicu Only) 2 puff IH QID PRN #1 inhalation 09/21/19 08/17/20 Unknown Rx [ProAir HFA Inhaler] Azithromycin [Zithromax Z-DANA] 250 mg PO DAILY #6 tablet 09/21/19 08/17/20 Unknown Rx Benzonatate [Tessalon Perles] 100 mg PO Q12H PRN #20 capsule 09/21/19 08/17/20 Unknown Rx Cetirizine HCl [ZyrTEC] 10 mg PO DAILY #30 capsule 09/21/19 08/17/20 Unknown Rx Fluticasone [Flonase] 1 spray NS QDAY #1 bottle 09/21/19 08/17/20 Unknown Rx Ibuprofen [Motrin] 800 mg PO Q8HR PRN #30 tablet 09/21/19 08/17/20 Unknown Rx Ciprofloxacin HCl [Ciprofloxacin 500 mg PO Q12HR 7 Days #14 tab 05/11/20 08/17/20 Unknown Rx TAB] metroNIDAZOLE [Flagyl] 500 mg PO Q12HR 7 Days #14 tab 05/11/20 08/17/20 Unknown Rx predniSONE [Deltasone] 40 mg PO BID 08/17/20 08/17/20 1 Day Ago History ~08/16/20 Active Meds: Active Medications Lorazepam (Ativan) 2 mg IV Q1HR PRN PRN Reason: CIWA-Ar 8- Last Admin: 08/18/20 09:05 Dose: 2 mg Documented by: Lorazepam (Ativan) 4 mg IV Q1HR PRN PRN Reason: CIWA-Ar 16-25 Lorazepam (Ativan) 4 mg IV Q15MIN PRN PRN Reason: CIWA-Ar >25 Mental Status Exam - Vital signs Last Vital Signs Temp 98.2 F 08/17/20 11:41 Pulse 144 H 08/17/20 22:15 Resp 16 08/18/20 09:01 BP 155/88 08/17/20 22:15 Pulse Ox 99 08/18/20 07:26 Results Result Diagrams: 08/17/20 12:18 08/17/20 12:18 Abnormal lab results 08/17/20 08/17/20 08/17/20 Range/Units 12:18 12:18 12:18 MCV 101 H (79-97) fl MCH 34 H (28-32) pg Baso % (Auto) 2.4 H (0.0-1.8) % Baso # (Auto) 0.2 H (0.0-0.1) K/mm3 Sodium 134 L (137-145) mmol/L Chloride 95.8 L (98-107) mmol/L Carbon Dioxide 18 L (22-30) mmol/L BUN 4 L (7-17) mg/dL Creatinine 0.5 L (0.6-1.2) mg/dL Glucose 102 H (65-100) mg/dL AST 371 H (5-40) units/L ALT 101 H (7-56) units/L Alkaline Phosphatase 205 H (35-129) units/L Lipase (13-60) units/L Plasma/Serum Alcohol 0.38 H (0-0.07) % 08/17/20 Range/Units 12:18 MCV (79-97) fl MCH (28-32) pg Baso % (Auto) (0.0-1.8) % Baso # (Auto) (0.0-0.1) K/mm3 Sodium (137-145) mmol/L Chloride (98-107) mmol/L Carbon Dioxide (22-30) mmol/L BUN (7-17) mg/dL Creatinine (0.6-1.2) mg/dL Glucose (65-100) mg/dL AST (5-40) units/L ALT (7-56) units/L Alkaline Phosphatase (35-129) units/L Lipase 126 H (13-60) units/L Plasma/Serum Alcohol (0-0.07) % All other labs normal. Assessment and Plan - Psychiatric problem (1) Alcohol use disorder Current Visit: Yes Status: Acute (2) Dysfunctional grieving Current Visit: Yes Status: Acute
[2020-08-18] MEDS ORDERED: diphenhydrAMINE 50 MG/ML VIAL IV ONE (11:51)
[2020-08-18 18:51] VITALS: BP 150/68
== END 2020-08-18 16:30 | disposition home or self-care (01) ==
LOC: ED 10:49
DX: F10.129 Alcohol abuse with intoxication, unspecified (principal); R74.01 Elevation of levels of liver transaminase levels; K70.0 Alcoholic fatty liver; F32.89 Other specified depressive episodes; Z90.79 Acquired absence of other genital organ(s); I10 Essential (primary) hypertension; F17.200 Nicotine dependence, unspecified, uncomplicated; Z98.890 Other specified postprocedural states; Z79.899 Other long term (current) drug therapy
CPT/HCPCS: 36415; 74019; 76700; 80053; 80307; 81001; 83690; 85025; 93005; 96361; 96365; 96366; 96375; 96376; 99285; J1200; J2060; J3411; J7030; U0003; 80320; G0480